=== PATIENT | male | born 1970 | race Two or more races ===

== ENCOUNTER 2017-07-31 04:04 | Emergency (ER) | payer SELFPAY ==
[~2017-07-31] VITALS: Ht 177.8 cm; Wt 90.0 kg
[2017-07-31 06:35] VITALS: BP 110/75
== END 2017-07-31 06:37 | disposition home or self-care (01) ==
LOC: ED 06:31
DX: F10.120 Alcohol abuse with intoxication, uncomplicated (principal)
CPT/HCPCS: 99283